=== PATIENT | male | born 1985 | race Caucasian/White ===

== ENCOUNTER 2016-11-15 15:05 | Emergency (ER) | payer OTHER ==
[2016-11-15 16:07] LABS: BASO % 0 % (0-3); EOS % 1 % (0-3); HEMATOCRIT 46.1 % (39.0-53.0); HEMOGLOBIN 15.9 g/dL (13.0-17.5); LYMPH # 1.6 x10^3/uL (1.0-4.8); LYMPH % 23 % (24-48); MEAN CORPUSCULAR HEMOGLOBIN 30 pg (25-35); MEAN CORPUSCULAR HGB CONC 34 g/dL (31-37); MEAN CORPUSCULAR VOLUME 88 fL (79-100); MONO # 0.5 x10^3/uL (0.0-1.1); MONO % 8 % (0-9); NEUT % 69 % (31-73); PLATELET COUNT 151 x10^3/uL (140-400); RED BLOOD COUNT 5.22 x10^6/uL (4.30-5.70); RED CELL DISTRIBUTION WIDTH 12.4 % (11.5-14.5); WHITE BLOOD COUNT 7.2 x10^3/uL (4.0-11.0)
[2016-11-15 16:13] LABS: ALBUMIN 4.2 g/dL (3.4-5.0); ALBUMIN/GLOBULIN RATIO 1.2 (1.0-1.7); CREATININE 0.9 mg/dL (0.7-1.3); GFR 98.4; POTASSIUM 3.6 mmol/L (3.5-5.1); TOTAL BILIRUBIN 0.6 mg/dL (0.2-1.0); TOTAL PROTEIN 7.6 g/dL (6.4-8.2)
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
[2016-11-15] MEDS ORDERED: ONDA4TAB10 PO (16:21)
[2016-11-15 16:43] VITALS: BP 121/72
[2016-11-15] MEDS ORDERED: RALTEGRAVIR 400 MG TABLET. PO SCH (21:00)
[2016-11-16] MEDS ORDERED: EMTRICITAB/TENOFOVIR 200/300MG TABLET. PO SCH (09:00)
[2016-11-16 18:11] LABS: HCV ANTIBODY <0.1 s/co ratio (0.0-0.9); HEP A IGM ABDY Negative (Negative)
== END 2016-11-15 16:43 | disposition home or self-care (01) ==
LOC: ER 15:05
DX: Z77.21 Contact with and (suspected) exposure to potentially hazardous body fluids (principal); F17.220 Nicotine dependence, chewing tobacco, uncomplicated
CPT/HCPCS: 36415; 80053; 80074; 85027; 86701; 86702; 86703; 87340; 87535; 99284